=== PATIENT | male | born 1990 | race Caucasian/White ===

== ENCOUNTER 2023-03-27 08:30 | Emergency (ER) | payer OTHER ==
[~2023-03-27] VITALS: Ht 167.6 cm; Wt 89.6 kg
[2023-03-27] MEDS ORDERED: ADDERALL 12.512.5 MG PO (08:44)
[2023-03-27 10:07] VITALS: BP 125/68
== END 2023-03-27 10:09 | disposition home or self-care (01) ==
LOC: ED 08:30
DX: S13.9XXA Sprain of joints and ligaments of unspecified parts of neck, initial encounter (principal); V69.40XA Driver of heavy transport vehicle injured in collision with unspecified motor vehicles in traffic accident, initial encounter
CPT/HCPCS: 72040; 99283-25; A9270